=== PATIENT | female | born 2000 ===

== ENCOUNTER 2024-03-07 16:54 | Emergency (ER) | payer SELFPAY ==
[~2024-03-07] VITALS: Ht 172.7 cm; Wt 72.8 kg
[2024-03-07 16:59] VITALS: BP 138/92; TEMP 98.7; O2SAT 100
[2024-03-07] MEDS ORDERED: ADDE30CA3 PO (17:03)
== END 2024-03-07 20:39 | disposition left against medical advice (07) ==
LOC: M ED 16:54
DX: Z53.21 Procedure and treatment not carried out due to patient leaving prior to being seen by health care provider (principal)